=== PATIENT | female | born 1985 | race African-American/Black ===

== ENCOUNTER 2018-01-21 15:34 | Emergency (ER) | payer BC ==
[~2018-01-21] VITALS: Ht 175.3 cm; Wt 150.0 kg
[2018-01-21] MEDS ORDERED: ACETAMINOPHEN 325 MG TABLET PO ONE (16:15)
[2018-01-21 19:18] VITALS: BP 129/83
== END 2018-01-21 19:21 | disposition home or self-care (01) ==
LOC: EMS 15:35
DX: J40 Bronchitis, not specified as acute or chronic (principal)
CPT/HCPCS: 71046; 87430; 99285